=== PATIENT | male | born 1955 | race Caucasian/White ===

== ENCOUNTER → 2021-07-18 12:20 | Outpatient (CLI) | payer MEDICARE, BC, SELFPAY ==
[2021-07-18 13:15] LABS: Appearance Urine UA CLEAR; Bilirubin Urine UA NEGATIVE (NEGATIVE); Color Urine UA YELLOW; Glucose Urine UA NEGATIVE (Negative); Ketones Urine UA NEGATIVE (NEGATIVE); Leukocyte Esterase Urine UA NEGATIVE (NEGATIVE); Nitrite Urine UA NEGATIVE (Negative); Occult Blood Urine UA NEGATIVE (Negative); Protein Urine UA NEGATIVE (Negative); Specific Gravity Urine UA 1.015 (1.000-1.035); Urobilinogen Urine UA 0.2 E.U./dL (0.2); pH Urine UA 5.5 (4.5-8.0)
[2021-07-18 13:25] LABS: Bacteria Urine None Seen; Culture Indicated Urine Cult Not Indicated; Mucus Urine 1+ (Negative); RBC Urine None Seen (0-5/HPF); Squamous Epithelial Cell Urine 0-1 /HPF (0-5/HPF); WBC Urine None Seen (0-5/HPF)
[2021-07-18 13:51] LABS: Add Manual Diff / Slide Review NO; Basophils Absolute Auto 100 /uL (0-100); Basophils Percent Auto 1.2 % (0-2); Eosinophils Absolute Auto 100 /uL (0-450); Eosinophils Percent Auto 1.6 % (2-4); Hematocrit 44.9 % (41-53); Hemoglobin 15.2 g/dL (13.5-17.5); Lymphocytes Absolute Auto 1700 /uL (1100-4500); Lymphocytes Percent Auto 29.8 % (25-40); Mean Corpuscular Hemoglobin 32.3 PG (26-34); Mean Corpuscular Volume 95.1 fL (80-100); Monocytes Absolute Auto 700 /uL (0-900); Neutrophils Absolute Auto 3000 /uL (1500-7000); Neutrophils Percent Auto 54.4 % (50-75); Platelet Count 255 X10^3/uL (150-400); Red Blood Cell Count 4.72 X10^6/uL (4.5-5.9); Red Cell Distribution Width 13.4 % (11.6-14.8); White Blood Cell Count 5.6 X10^3/uL (4.5-11.0)
[2021-07-18 13:59] LABS: Hemoglobin A1C% w Est Avg Glu 5.5 % (4.0-6.0)
[2021-07-18 14:18] LABS: BUN Creatinine Ratio 17.2 (6-22); Blood Urea Nitrogen 15 mg/dL (9-20); Calcium 9.5 mg/dL (8.4-10.2); Carbon Dioxide 29 mmol/L (22-32); Chloride 105 mmol/L (98-107); Estimated Glomerular Filt Rate > 60.0 mL/min (>60); Glucose 87 mg/dL (80-110); HEMOLYSIS < 15 (0-50); Sodium 140 mmol/L (137-145)
== END ==
PROVIDERS: PCP Internal Medicine; Referring Provider Orthopaedic Surgery; Visit Provider Orthopaedic Surgery
DX: Z01.818 Encounter for other preprocedural examination (principal); R73.9 Hyperglycemia, unspecified; Z01.812 Encounter for preprocedural laboratory examination; N39.0 Urinary tract infection, site not specified
CPT/HCPCS: 36415; 80048; 81001; 83036; 85025; 93005

== ENCOUNTER 2021-09-19 11:08 | Observation (INO) | payer MEDICARE, BC, SELFPAY ==
[2021-09-06 10:02] VITALS: BMI 25.8
[2021-09-18] VITALS (12 sets, daily range): BP systolic 118–148; BP diastolic 73–86; PULSE 61–87; RESP 8–20; TEMP 36.3–37.2; O2SAT 88–99; BMI 25.8
--- NOTE | 2021-09-18 06:00 | DI.RAD.S_ITS ---
PROCEDURE: XR KNEE LT 1TO2V INDICATIONS: TKA TECHNIQUE: 2 view(s) of the knee acquired. COMPARISON: [facility] [place], CR, XR KNEE 4+ VIEWS LEFT, 07/18/2021, 11:08. FINDINGS: Bones: Patient is status post knee joint arthroplasty. Hardware components are in expected positions. Visualized bony structures are intact. Soft tissues: Overlying postoperative changes are noted. IMPRESSION: Expected immediate postoperative appearance of left TKA. Dictated by: Milton Thorpe [facility] Interpreted: Inocente Bermudez MD on 09/18/2021 at 15:13 Transcribed by: ARVIN on 09/18/2021 at 15:13 Approved by: Inocente Bermudez M.D. on 09/18/2021 at 16:50
[2021-09-18] MEDS: LACTATED RINGERS 1,000 ML 42 ML IV (09:39)
[2021-09-18] MEDS: CELECOXIB 200 MG CAPSULE PO (09:39)
[2021-09-18] MEDS: ACETAMINOPHEN 325 MG TABLET 975 MG PO (09:39)
[2021-09-18] MEDS: VANCOMYCIN 1,000 MG/200 ML PIGGYBACK 200 MG IV ×2 (11:29→12:35)
--- NOTE | 2021-09-18 12:05 | P.OP_ITS ---
Operative Date/Time/Diagnoses Date of procedure: 09/18/21 Time of procedure: 13:00 Pre-op diagnosis: Severe left knee osteoarthritis Post-op diagnosis: same Procedure & Clinicians Procedure: Left total knee arthroplasty Same procedure as scheduled: Yes Indications: The patient has had progressively worsening left knee pain with radiographic changes consistent with arthritis. Non-operative management has failed and the patient has requested total knee replacement. The risks, benefits and alternatives to surgery were discussed with the patient prior to proceeding. Risks discussed included, but were not limited to, failure to relieve pain, stiffness, infection, nerve damage, deep venous thrombosis, pulmonary embolism, stroke, coma, heart attack, permanent paralysis and , as well as the potential need for eventual revision of the prosthetic. Surgeon: Sherry Ivy Director Network Development: Bhupendra Srinivasan Anesthesia Type: General and Spinal Operative Notes Findings: Severe left knee osteoarthritis, good stability, severe patellofemoral arthritic change Closure Type: primary Specimen(s): none sent Prosthetic devices, grafts, tissues, transplants, or devices: [employer] BCS 2 size 6 femur, size 5 tibia, +10 poly, 35 x 7.5 mm patella Applied: drain(s) Estimated Blood Loss (mL): 250 Blood products transfused: none Tourniquet time (min): 77 Procedure in detail: The patient was seen in the pre-operative area, where the patient identified the right knee as the operative site and this was marked with my initials. The patient received pre-operative antibiotics, and was taken to the operating room and placed on the operative table in the supine position. After satisfactory anesthesia, a night time nanny out was performed. The right leg was encircled with a tourniquet about the proximal thigh, and the leg was prepared from the toes to the tourniquet with ChloroPrep in the usual fashion and draped through sterile drapes. The leg was elevated and exsanguinated with Eschmark bandage and the tourniquet inflated to [250] mmHg pressure. The knee was approached through an approximately 18 cm incision centered over the patella and carried into the knee through a medial parapatellar arthrotomy. A portion of the medial and lateral meniscus was resected. Soft tissue was carefully mobilized around the patella the patella was measured with a caliper. Bone was resected from the patella and the patellar height was reconstituted with up an appropriate sized patellar component. There was severe wear in the patellar specially in the lateral aspect. Small portion of overlying lateral facet was resected. Lateral synovium was released. I Checked the tracking of the patella prior to femoral and tibial cuts. A cover was then placed on the p atella. A small amount of additional medial and lateral meniscus was resected. The distal femur was cut at 5?. A [+2] cut was used. It looked like an appropriate distal femoral cut and the cut was made without difficulty. An extramedullary guide was used for the tibial cut. 10 mm was resected off the least affected side. The patient was placed in extension residual medial and lateral meniscus as well as any residual bone was carefully resected. [No] additional tibia was resected. Hemostasis was achieved especially posteriorly. Additional local was injected into the posterior capsule. The extension gap was assessed and additional releases for gap balancing were performed as necessary. It was checked with the gap supervisor pre wave. The rotation was assessed and the appropriate size femoral guide was placed on the distal femur and finishing cuts were made. There was no evidence of notching. The anterior, posterior and chamfer cuts were then made. The posterior osteophytes and soft tissues were then removed. The posterior capsule was injected with part of a mixture of 60 ml 0.25% Marcaine mixed with 20 ml Exparel for post operative pain control. The remainder of this mixture was injected into the capsule and subcutaneous tissues during cement curing. The trial femoral component was placed and the notch was finished. Tibial and femoral components were then placed and the knee placed through a range of motion. Range of motion was [0-130], with good stability throughout the range. The trials were then removed, and the tibia was finished. The bone was prepared with pulsatile lavage, and dried with a sponge. Cement was applied and the final prosthetics placed. Excess cement was removed during and after cement curing. After confirming there was no extruded cement posteriorly, the final tibial insert was placed. The knee was copiously irrigated and the tourniquet deflated. Hemostasis was obtained with the Bovie. A drain was placed and brought out superolaterally. The capsule was closed with interrupted nonabsorbable suture. The subcutaneous layer was closed with barbed sutures, and the skin with a running 3-0 V-Lock suture and Surgical glue. An Aquacel Ag dressing was applied and the patient was taken to recovery having tolerated the procedure well. Complications: none Post-operative Condition: stable Disposition: Acute Care Plan for aftercare: The patient will be maintained on a standard total knee replacement protocol with weight bearing as tolerated. The patient will receive aspirin and sequential compression devices for DVT prophylaxis. The patient will be discharged home when safe for the home environment.
--- NOTE | 2021-09-18 12:05 | PM.PREOP ---
Pre-operative Note COVID-19 COVID-19 status: Negative Result date/Date tested (Pos, Neg/Pending): 09/16/21 Interval Note History & Physical reviewed/Exam performed by Physician: Yes Changes to H&P: No
--- NOTE | 2021-09-18 12:11 | SUR.OPER ---
Supine on padded OR bed. Pillow under head, arms secured on padded armboards <90 degree abduction. Safety belt across torso. Right leg secured with tape over blanket over lower leg. Left leg secured in De[employer]o positioner. Foam padded brace at thigh of operative leg.
[2021-09-18] MEDS: CEFAZOLIN 2 GM/20 ML SYRINGE IV ×2 (12:43→22:06)
[2021-09-18] MEDS: TRANEXAMIC ACID 1,000 MG VIAL 2000 MG INJ (12:45)
[2021-09-18] MEDS: BUPIVACAINE LIPOSOME 266 MG/20 ML VIAL INJ (13:15)
[2021-09-18] MEDS: BUPIVACAINE 0.25% (PF) 60 ML, EPINEPHrine 0.3 MG INJ (13:18)
[2021-09-18] MEDS: OXYCODONE IR 5 MG TABLET PO ×2 (15:34→19:49)
[2021-09-18] MEDS: IBUPROFEN 400 MG TABLET PO ×2 (16:53→22:05)
[2021-09-18] MEDS: LACTATED RINGERS 1,000 ML 100 ML IV (16:53)
--- NOTE | 2021-09-18 18:04 | PC.NURSE ---
Assess- Patient had a left total knee, aquacel dressing and acewrap intact. Hemovac drain unclamped at 1700, with red bloody drainage in tube. He states that he is in minimal pain. Will give patient some ibuprofen for comfort. IVF infusing, vss and patient has been admitted to the floor. He has feeling to his left leg and foot. Patient is doing ankle waves and tolerating this well.
[2021-09-18] MEDS: PREGABALIN 50 MG CAPSULE PO (21:45)
[2021-09-18] MEDS: ACETAMINOPHEN 325 MG TABLET 650 MG PO (22:05)
[2021-09-18] MEDS: ASPIRIN EC 81 MG TABLET PO (22:05)
[2021-09-18] MEDS: DOCUSATE 100 MG CAPSULE PO (22:05)
[2021-09-19] MEDS: OXYCODONE IR 5 MG TABLET PO ×3 (00:26→12:01)
[2021-09-19] MEDS: IBUPROFEN 400 MG TABLET PO ×4 (00:26→12:01)
[2021-09-19 00:35] VITALS: BP 123/76; PULSE 67; RESP 18; TEMP 37; O2SAT 94
[2021-09-19] MEDS: LACTATED RINGERS 1,000 ML 100 ML IV (03:16)
[2021-09-19] MEDS: CEFAZOLIN 2 GM/20 ML SYRINGE IV (04:45)
[2021-09-19 06:00] VITALS: BP 107/73; PULSE 60; RESP 18; TEMP 36.6; O2SAT 100
[2021-09-19 07:33] LABS: Hematocrit 38.8 % (41-53); Hemoglobin 13.2 g/dL (13.5-17.5)
[2021-09-19 07:55] VITALS: BP 124/68; PULSE 64; RESP 16; TEMP 36.4; O2SAT 99
--- NOTE | 2021-09-19 08:13 | P.DS_ITS ---
History of Present Illness History of Present Illness Date Patient Seen: 09/19/21 Time Patient Seen: 08:13 Chief complaint: Knee pain Narrative: Patient's pain is [id number]. Denies fever or chills. No nausea or vomiting. Discharge Providers Provider Discharge Date: 09/19/21 Primary care physician: Dana Winkler MD Consults: 09/18/21 06:00 Consult to Anesthesiology Routine Comment: Consulting Provider: Anesthesiologist Reason for consultation: Regional block for post operative pain control 09/18/21 16:19 Consult to Discharge Planning Routine Comment: Consult to Physical Therapy Evaluate & Treat Comment: Physician Instructions: postop TKA protocol Consult to Respiratory Therapy Evaluate & Treat Comment: Physician Instructions: Evaluate and treat Discharge provider: Bhupendra Srinivasan PA-C Summary Hospital Course Discharge Diagnosis: Severe left knee osteoarthritis Hospital Course: Left total knee arthroplasty Same procedure as scheduled: Yes Indications: The patient has had progressively worsening left knee pain with radiographic changes consistent with arthritis. Non-operative management has failed and the patient has requested total knee replacement. The risks, benefits and alternatives to surgery were discussed with the patient prior to proceeding. Risks discussed included, but were not limited to, failure to relieve pain, sti ffness, infection, nerve damage, deep venous thrombosis, pulmonary embolism, stroke, coma, heart attack, permanent paralysis and , as well as the potential need for eventual revision of the prosthetic. Surgeon: Sherry Ivy [employer] Specialist: Bhupendra Srinivasan Anesthesia Type: General and Spinal Operative Notes Findings: Severe left knee osteoarthritis, good stability, severe patellofemoral arthritic change Closure Type: primary Specimen(s): none sent Prosthetic devices, grafts, tissues, transplants, or devices: [employer] BCS 2 size 6 femur, size 5 tibia, +10 poly, 35 x 7.5 mm patella Applied: drain(s) Estimated Blood Loss (mL): 250 Blood products transfused: none Tourniquet time (min): 77 Patient admitted to the hospital for left total knee arthroplasty. Patient consented to the same. Patient underwent left total knee arthroplasty September 18, 2021. Patient back in his room recovering well and is in stable condition. Patient will mobilize with physical therapy this morning. Patient will be discharged home today in stable condition after physical therapy if safe for home environment. Exam Vital Signs (past 8 hours): - 09/19/21 00:35 09/19/21 06:00 Temperature 98.6 F 97.9 F Pulse Rate 67 60 Respiratory Rate 18 18 Blood Pressure 123/76 107/73 Pulse Oximetry 94 100 Oxygen Delivery Method Room Air Oxygen Flow Rate 0 Narrative Exam Narrative: Pleasant 66-year-old male resting comfortably in bed in no apparent distress. Dressing is Clean, dry, intact.. Motor functions intact distal bilateral lower extremities. Sensation grossly intact to light touch bilateral lower extremities. 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 Discharge Plan Discharge Plan Patient Disposition: Home Discharge orders & Medications Discharge Orders: Discharge (Order); Ordered 09/19/21 Ordered By: Bhupendra Srinivasan Prescriptions: New acetaminophen 325 mg Tablet 650 mg PO TID Qty: 60 0RF aspirin 81 mg Tablet,Delayed Release (Dr/Ec) 81 mg PO BID Qty: 60 0RF ibuprofen 400 mg Tablet 400 mg PO Q4HR Qty: 60 0RF docusate sodium 100 mg Capsule 100 mg PO BID Qty: 20 0RF oxycodone 10 mg Tablet 10 mg PO Q3HR PRN (Reason: Pain, Severe (7-10)) Qty: 60 0RF Continued pregabalin 50 mg Capsule 50 mg PO TID 0RF Discontinued tramadol 50 mg Tablet 100 mg PO DAILY PRN (Reason: Pain) 0RF ibuprofen 200 mg Tablet 200 mg PO DAILY PRN (Reason: Pain) 0RF Follow up/Referrals: Dana Winkler MD [Primary Care Provider] - Sherry Ivy MD [Physician] - (2 weeks) Diet/Activity/Treatments Diet: Diet as Tolerated Activity: Weight-bearing as tolerated Cold/Heat Therapy: Apply ice to knee as needed Skin/Wound/Dressing Care Report to your healthcare provider any signs of infection, such as:: chills, fever, increased pain, unusual drainage and unusual redness Dressing: Keep dressing clean and dry Visit Report/Discharge Packet Instructions: DI for Knee Replacement Stand Alone Forms: Surgery Discharge Discharge Data Primary Care Provider: Dana Winkler Attending Provider: Sherry Ivy
[2021-09-19] MEDS: polyethylene glycoL 3350 17 GM POWD.PACK PO (08:17)
[2021-09-19] MEDS: DOCUSATE 100 MG CAPSULE PO (08:19)
[2021-09-19] MEDS: PREGABALIN 50 MG CAPSULE PO (08:19)
[2021-09-19] MEDS: ACETAMINOPHEN 325 MG TABLET 650 MG PO (08:19)
[2021-09-19] MEDS: ASPIRIN EC 81 MG TABLET PO (08:19)
--- NOTE | 2021-09-19 10:00 | PT.IIE ---
Current Diagnoses Unilateral primary osteoarthritis, left knee (09/19/21) Surgery Performed Operation Date: 09/18/21 11:15 Actual Procedures p Total Knee Arthroplasty(Left) - Sherry Ivy MD Medical History (Last Reviewed 09/19/21 @ 08:15 by Bhupendra Srinivasan PA-C) BCC (basal cell carcinoma of skin) Bleeds easily Colon cancer (04/22/17) Osteoarthritis Otalgia Trigeminal neuralgia Physical Therapy Inpatient Evaluation/Re-Eval M1 PT/OT-IP Prior Functional Status Start: 09/19/21 12:15 Freq: NEEDED Status: Active Protocol: Document 09/19/21 10:00 AB (Rec: 09/19/21 12:29 AB [id number]) Medical Review Prior Functional Status Medical History Reviewed Yes Communication able to make needs known Mobility and Gait pt stated that he is indpeendent with all mobilities and ambulation without AD but occasionally uses a walking stick depending on knee pain Social History Household Members spouse Living Arrangements House Number of Floors (Floors) Two Floors Number of Stairs To Enter/Railing? ramp to enter pt plans to stay on first level of the house for now Home Environment Standard Height Toilet,Walk in Shower,Tub/Shower,Ramp Home Equipment Front Wheel Walker,Straight Cane M2 PT-IP Current Condition Start: 09/19/21 12:15 Freq: NEEDED Status: Active Protocol: Document 09/19/21 10:00 AB (Rec: 09/19/21 12:29 AB [email or web address]) Physical Therapy Current Condition Current Condition Evaluation Date 09/19/21 Treatment Diagnosis s/p L TKA; difficulty in walking Onset Date 09/18/21 M3 PT-IP Subjective Start: 09/19/21 12:15 Freq: NEEDED Status: Active Protocol: Document 09/19/21 10:00 AB (Rec: 09/19/21 12:29 AB [email or web address]) Subjective Physical Therapy Visit Type Type Initial Evaluation Visit Start Time 10:00 Visit Stop Time 10:45 Total Visit Minutes 45 Number of PIT SHOVEL OPERATOR Visits 0 Physical Therapy Visit Comments Patient Comments agreeable to do PT Therapy Pain Assessment Pain When Pain Assessed At Rest Pain Present Pain Present Pain Reported Location Left Knee Intensity 3 Scale Used Numeric (0 - 10) Pain Management Techniques Apply Cold,Distraction, Modification of Treatment,Re- positioning,Timing of Activity with Medications M4 PT-IP Mobility and Gait Start: 12/01/21 12:15 Freq: NEEDED Status: Active Protocol: Document 09/19/21 10:00 AB (Rec: 09/19/21 12:29 AB [email or web address]) PT-Bed Mobility Assessment Supine to Sit Supine to Sit Standby Assistance PT-Transfer Assessment Sit to and From Stand Sit to and from Stand Standby Assistance,Contact Guard Assistance,1 Person Assistance,Use of Upper Extremities Equipment Transfer Assistive Device Gait Belt,Front Wheeled Walker Orthotic/Prosthetic Devices or Brace: No Transfers Transfer Destination Chair Transfer Technique ambulated Transfer Ability Level of Assist Standby Assistance,Contact Guard Assistance,Use of Upper Extremities Comments Mobility Comments pt completed supine to sit SBA . able to sit on EOB SBA. completed sit to stand CGA and ambulated to the chair using FWW CGA and cues for L quads activation. pt educated on steadiness and use of FWW. completed sit to stand from chair SBA and ambulated in room ~ 100 ft using FWW SBA to CGA. pt agreed to stay up on chair. positioned on chair. call light and table placed within reach. Gait Assessment Gait Gait Assistance Required: Standby Assistance,Contact Guard Assist Distance (Feet) 100 Able to Maintain Weight Bearing Status Yes During Gait Assistive Devices Assistive Device Gait Belt,Front Wheeled Walker Orthotic/Prosthetic Devices or Brace: No Gait Deviations General Gait Pattern Antalgic,Decreased Stride Length,Decreased Feet Clearance Factors Limiting Gait Function Factors Limiting Gait Function Decreased Activity Tolerance, Decreased Sensation,Decreased Strength,Limited Range of Motion,Pain,Poor Balance,Poor Safety Awareness PT-Balance Assessment Sitting Balance and Reactions Static Sitting Balance Ability Good Dynamic Sitting Balance Ability Good Standing Balance and Reactions Static Standing Balance Ability Fair Dynamic Standing Balance Ability Fair Device Used FWW M5 PT-IP Objective Assessments Start: 09/19/21 12:15 Freq: NEEDED Status: Active Protocol: Document 09/19/21 10:00 AB (Rec: 09/19/21 12:29 AB [email or web address]) Orientation Orientation/Cognition Level of Alertness Alert Orientation Name,Place,Situation Language Function Ability No Deficits Noted Memory Description No Deficits Noted Gross Range of Motion Lower Extremity ROM Impairments L knee flexion: ~ 70 deg Strength Lower Extremity Strength Assessment Left Impaired Hip 4-/5 Knee 4-/5 Sensation Assessment Sensation Sensation Description Numbness Comments Sensation Comments stated that L lateral thigh area is still a little numb M6 PT-IP Treatment Start: 09/19/21 12:15 Freq: NEEDED Status: Active Protocol: Document 09/19/21 10:00 AB (Rec: 09/19/21 12:29 AB [email or web address]) Physical Therapy Treatment Education Education Provided Precautions,Weight Bearing Status,Post-Op Packet,Safety M7 PT-IP Assessment and Plan Start: 09/19/21 12:15 Freq: NEEDED Status: Active Protocol: Document 09/19/21 10:00 AB (Rec: 09/19/21 12:29 AB [email or web address]) PT Summary Assessment and Plan Potential Rehabilitation Potential Good Status of Condition at Evaluation Stable Summary Impairments Pain,ROM,Strength,Balance, Coordination,Sensation,Bed Mobility,Transfers,Gait, Activity Tolerance Assessment Summary pt requiring SBA to CGA with mobility using FWW and plans to go home with spouse to assist. pt stated that he has outpt PT scheduled already. Pt may go home when medically stable. Goals Bed Mobility Goal Independent Transfer Goal Independent,Front Wheeled Walker Gait Goal Independent,Front Wheel Walker Gait Distance 200 Days to Meet Goals 5 Frequency of Treatment Frequency Of Treatment Twice a Day Treatment Plan Physical Therapy Treatment Plan Bed Mobility Training,Transfer Training,Gait Training, Therapeutic Exercise,Balance Retraining,Post Op Education, Discharge Planning,Hot or Cold Pack,Neuromuscular Re-ed, Coordination Retraining,Manual Therapy Weight Bearing Status Weight Bearing Status Weight Bear as Tolerated Allowed Weight Bearing Amount (enter % LLE WBAT or #) (%) Recommendations To Nursing Amount of Assist Needed 1 Person Assist Discharge Recommendations PT Discharge Recommendations Home with Assistance, Outpatient PT Transportation Needs at Discharge Private Vehicle
--- NOTE | 2021-09-19 12:30 | PC.NURSE ---
Day shift: Pt left unit via WC at approx 1230. Taken by ZULY Antonio. Pt's spouse is driving him home. Aquacel remains CDI. CMS remains intact and PPP. Pt has all personal belongings. Paperwork signed and all questions answered. scripts sent electronic to Pt's pharmacy. Pt's spouse in room for d/c teachings today. Pt encouraged to perform foot waves.
== END 2021-09-19 12:32 | disposition home or self-care (01) ==
LOC: OR 11:25 → AC 11:25
PROVIDERS: Admitting Provider Orthopaedic Surgery; PCP Internal Medicine; Referring Provider Orthopaedic Surgery; Visit Provider Orthopaedic Surgery
PROC: 0SRD0JZ Replacement of Left Knee Joint with Synthetic Substitute, Open Approach (ICD-10-PCS; CPT 27447; principal; 2021-09-18 11:15)
DX: M17.12 Unilateral primary osteoarthritis, left knee (principal); G50.0 Trigeminal neuralgia; Z85.038 Personal history of other malignant neoplasm of large intestine
CPT/HCPCS: 27447; 36415; 73560; 85014; 85018; 97161; 97530; C1776; G0378; C9290; J0171; J0690; J1100; J1170; J2250; J2405; J2704; J3010